=== PATIENT | male | born 1960 | race Caucasian/White ===

== ENCOUNTER → 2017-11-16 | Outpatient (CLI) | payer MEDICARE, OTHER ==
--- NOTE | 2017-11-16 14:32 | MR ---
EXAMINATION TYPE: MR brain wo/w con DATE OF EXAM: 11/16/2017 COMPARISON: NONE HISTORY: 57-year-old male follow-up MS TECHNIQUE: Multiplanar, multisequence images of the brain and brainstem is performed without and with utilizing 7.5 mL intravenous Gadavist gadolinium contrast. Demyelinating disease protocol with rosemarie tional Sagittal Flair sequence performed. FINDINGS: T2 Lesions Present : Yes Approximate Number of Lesions: Approximately 50-75 in each cerebral hemisphere. Locations Identified : Subcortical, deep white matter, and some periventricular. Size of Reference Lesion(s): 1. 1.1 x 0.7 cm in the posterior right frontal subcortical region versus 1.0 x 0.7 cm, previously, a xial image 20, not significantly changed. 2. 0.9 x 0.7 cm right frontal subcortical region more anteriorly unchanged, axial image 19. Enhancing Lesion(s) Present: No T1 Hypointense Lesion(s) Present: Yes Change from Prior: Stable Diffusion weighted images demonstrate no evidence of a recent infarct or other diffusion abnormality. There is no worrisome extra-axial fluid collection. The ventricular system and cisternal spaces ar e normal in size and appearance. The brain volume is age appropriate. Midline structures demonstrate normal morphology. The craniocervical junction appears within normal limits. Post contrast images demonstrate no abnormal enhancement. The dural venous sinuses appear patent. Moderate to severe mucosal thickening involving the maxillary sinuses and ethmoid air cells. Trace mu cosal thickening in the frontal sinuses. Globes appear intact. Continued partial opacification of the right-sided mastoid air cells. IMPRESSION: 1. Stable moderate to severe scattered burden of T2 bright white matter change in keeping with patien t's MS. No new or enhancing lesion seen. 2. 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 3. Continued trapped fluid in the right mastoid air cells. Correlate for any mastoid pain to exclude mastoiditis.
== END | disposition home or self-care (01) ==
LOC: RADMRIMAIN 13:01
PROVIDERS: ATTEND Family Medicine
DX: R90.82 White matter disease, unspecified (principal); Z88.5 Allergy status to narcotic agent
CPT/HCPCS: 70553; A9581

== ENCOUNTER 2019-03-31 14:23 | Emergency (ER) | payer MEDICARE, OTHER ==
[2019-03-31 14:35] VITALS: RESP 16
[2019-03-31] MEDS ORDERED: SODIUM CHLORIDE 0.9% 500 ML 500 ML IV STA (14:59)
[2019-03-31] MEDS ORDERED: LORazepam 2 MG/ML INJ IV STA (14:59)
[2019-03-31 15:30] LABS: ALT 31 U/L (21-72); AST 46 U/L (17-59); Albumin 4.3 g/dL (3.5-5.0); Alkaline Phosphatase 63 U/L (38-126); Anion Gap 6 mmol/L; Blood Urea Nitrogen 9 mg/dL (9-20); Calcium 9.8 mg/dL (8.4-10.2); Carbon Dioxide 25 mmol/L (22-30); Chloride 108 mmol/L (98-107); Glucose 100 mg/dL (74-99); Magnesium 1.9 mg/dL (1.6-2.3); Potassium 4.5 mmol/L (3.5-5.1); Sodium 139 mmol/L (137-145); Total Bilirubin 0.6 mg/dL (0.2-1.3); Total Protein 6.8 g/dL (6.3-8.2)
[2019-03-31 15:34] LABS: HCT 43.1 % (39.0-53.0); HGB 14.5 gm/dL (13.0-17.5); MCH 33.8 pg (25.0-35.0); MCHC 33.8 g/dL (31.0-37.0); MCV 100.2 fL (80.0-100.0); Macrocytosis Slight; Mean Platelet Volume 7.7; Platelet Count 112 k/uL (150-450); RDW 14.4 % (11.5-15.5); WBC 11.8 k/uL (3.8-10.6)
[2019-03-31 15:36] LABS: INR 0.9 (<1.2); Prothrombin Time 9.4 sec (9.0-12.0)
--- NOTE | 2019-03-31 15:36 | XR ---
EXAMINATION TYPE: XR chest 2V DATE OF EXAM: 03/31/2019 COMPARISON: 09/23/2016 HISTORY: Weakness TECHNIQUE: Frontal and lateral views of the chest are obtained. FINDINGS: Heart and mediastinum are normal. Lungs are clear. Diaphragm is normal. There are chest le ads. Bony thorax is intact. IMPRESSION: No active cardiopulmonary disease. Normal heart. There is clearing of the pleural reacti on at the left lung base compared to old exam.
--- NOTE | 2019-03-31 15:38 | CT ---
EXAMINATION TYPE: CT brain wo con DATE OF EXAM: 03/31/2019 COMPARISON: 08/18/2014 HISTORY: Weakness, tremors. Neuro deficits CT DLP: 1162.4 mGycm Automated exposure control for dose reduction was used. FINDINGS: Ventricles have normal size. There is no mass effect nor midline shift. There is no sign of intracran ial hemorrhage. Calvarium is intact. IMPRESSION: NEGATIVE CT SCAN OF THE BRAIN. NO CHANGE.
[2019-03-31 15:41] LABS: Partial Thromboplastin Time 18.4 sec (22.0-30.0)
[2019-03-31 16:21] LABS: Anisocytosis (M) Present; Eosinophils # (M) 0.24 k/uL (0-0.7); Monocytes # (M) 0.12 k/uL (0-1.0); Neutrophils # (M) 2.95 k/uL (1.3-7.7); Neutrophils % (M) 25 %; Nucleated Red Blood Cells 0 /100 WBC (0-0); Poikilocytosis (M) Present; Total Cells Counted 100
[2019-03-31] MEDS ORDERED: diphenhydrAMINE 50 MG/ML 1 ML VIAL IVP STA (16:33)
--- NOTE | 2019-03-31 18:01 | ED ---
General Adult HPI - General Chief complaint: Neuro Symptoms/Deficit Stated complaint: tremors Time Seen by Provider: 03/31/19 14:43 Source: patient, EMS, RN notes reviewed Mode of arrival: EMS Limitations: no limitations - History of Present Illness Initial comments: 59-year-old male with a past medical history of COPD, migraine/cluster headaches, sleep apnea, MS presents to the emergency department for a chief complaint of tremors. Patient states that about 1.5 hours prior to arrival he was shopping when he started to have worse tremors. Patient states he does sometimes have tremors at baseline and is early in the process of being diagnosed with MS. States that these seem to worsen about 1.5 hours ago. States that he felt like he was stuttering and couldn't speak clearly. Patient denies any weakness of upper or lower extremities. Denies headache. Patient denies dizziness or room spinning.Patient has no other complaints at this time i ncluding shortness of breath, chest pain, abdominal pain, nausea or vomiting, headache, or visual changes. - Related Data Home Medications Medication Instructions Recorded Confirmed Omeprazole [PriLOSEC] 20 mg PO AC-BRKFST 08/18/14 09/23/16 rOPINIRole HCL [Requip] 2 mg PO HS 10/27/14 09/23/16 Previous Rx's Medication Instructions Recorded Albuterol Inhaler [Ventolin Hfa 2 puff INHALATION RT-QID PRN #1 02/11/16 Inhaler] puff Mirtazapine [Remeron] 30 mg PO HS #14 tab 02/11/16 Multivitamins, Thera [Multivitamin 1 each PO DAILY@1200 #30 tab 02/11/16 (formulary)] Propranolol [Inderal] 20 mg PO DAILY PRN #14 tab 02/11/16 QUEtiapine [SEROquel] 600 mg PO HS #21 tab 02/11/16 Butalb/Acetaminophen/Caffeine 1 each PO Q4HR PRN #20 tab 05/04/16 [Fioricet] Hydrocodone/Acetaminophen [[place] 1 each PO Q6HR PRN #20 tab 09/23/16 5-325] Allergies Allergy/AdvReac Type Severity Reaction Status Date / Time codeine AdvReac Unknown Nausea Verified 03/31/19 14:29 Review of Systems ROS Statement: Those systems with pertinent positive or pertinent negative responses have been documented in the HPI. ROS Other: All systems not noted in ROS Statement are negative. Past Medical History Past Medical History: COPD Additional Past Medical History / Comment(s): MIGRAINES/CLUSTER HEADACHES, sleep apnea History of Any Multi-Drug Resistant Organisms: None Reported Past Surgical History: Tonsillectomy Additional Past Surgical History / Comment(s): hemmorrhoid, cyst removed from wrist Past Anesthesia/Blood Transfusion Reactions: No Reported Reaction Past Psychological History: Anxiety, Depression Smoking Status: Current every day smoker Past Alcohol Use History: Occasional Past Drug Use History: Marijuana General Exam Limitations: no limitations General appearance: alert, in no apparent distress Head exam: Present: atraumatic, normocephalic, normal inspection Eye exam: Present: normal appearance, PERRL, EOMI. Absent: scleral icterus, conjunctival injection, periorbital swelling ENT exam: Present: normal exam, mucous membranes moist Neck exam: Present: normal inspection, full ROM. Absent: tenderness, meningismus, lymphadenopathy Respiratory exam: Present: normal lung sounds bilaterally. Absent: respiratory distress, wheezes, rales, rhonchi, stridor Cardiovascular Exam: Present: regular rate, normal rhythm, normal heart sounds. Absent: systolic murmur, diastolic murmur, rubs, gallop, clicks GI/Abdominal exam: Present: soft, normal bowel sounds. Absent: distended, tenderness, guarding, rebound, rigid Neurological exam: Present: alert, oriented X3, CN II-XII intact Expanded Patient oriented to: Present: person, place, time Speech: Absent: fluid speech (Patient is stuttering) Cranial nerves: EOM's Intact: Normal, Tongue Deviation: Normal, Nystagmus: Normal, Facial Sensation: Normal Sensory exam: Upper Extremity Light Touch: Normal, Upper Extremity Pin Prick: Normal, Lower Extremity Light Touch: Normal, Lower Extremity Pin Prick: Normal Motor strength exam: RUE: 5 (tremors), LUE: 5 (tremors), RLE: 5 (tremors), LLE: 5 (tremors) Eye Response: (4) open spontaneously Motor Response: (6) obeys commands Verbal Response: (5) oriented Florentin Total: 15 Psychiatric exam: Present: normal affect, normal mood Course Vital Signs 03/31/19 03/31/19 03/31/19 14:29 15:42 18:12 Temperature 98.7 F 98.5 F Pulse Rate 84 90 82 Respiratory 16 16 16 Rate Blood Pressure 142/77 128/68 130/84 O2 Sat by Pulse 93 L 95 96 Oximetry EKG Findings - EKG Comments: EKG Findings:: Sinus rhythm, regular 84, CO interval 156, QRS 96, QTC 420 Medical Decision Making - Medical Decision Making 59-year-old male presents to the emergency department for a chief complaint of tremors and stuttering. Patient states that he sometimes has tremors at baseline and has difficulty walking due to possible MS. However these worsened about an hour and half ago patient began stuttering. Patient denies any weakness. There are any focal neurologic deficits on exam. Patient is noted to stutter. CBC and CMP are unremarkable. Troponin is negative. EKG does not show any evidence of ST elevation or depression. CT brain showed a negative scan without any change. Chest x-ray showed no active cardio pulmonary disease. Patient was evaluated by Dr. Cleary as well. Recommended Ativan. Patient was given Ativan and had significant improvement of symptoms. Patient was noted to be on Seroquel so was also given Benadryl with further improvement of symptoms. Patient actually requesting discharge at this time stating he is feeling much better. Patient is ambulatory. I did discuss the patient following up with primary care for medication review as well as his neurologist tomorrow. Discussed returning here if he has any worsening symptoms. - Lab Data Result diagrams: 03/31/19 15:10 03/31/19 15:10 Lab Results 03/31/19 03/31/19 03/31/19 Range/Units 15:10 15:10 15:10 WBC 11.8 H (3.8-10.6) k/uL RBC 4.30 (4.30-5.90) m/uL Hgb 14.5 (13.0-17.5) gm/dL Hct 43.1 (39.0-53.0) % MCV 100.2 H (80.0-100.0) fL MCH 33.8 (25.0-35.0) pg MCHC 33.8 (31.0-37.0) g/dL RDW 14.4 (11.5-15.5) % Plt Count 112 L (150-450) k/uL Neutrophils % (Manual) 25 % Lymphocytes % (Manual) 72 % Monocytes % (Manual) 1 % Eosinophils % (Manual) 2 % Neutrophils # (Manual) 2.95 (1.3-7.7) k/uL Lymphocytes # (Manual) 8.50 H (1.0-4.8) k/uL Monocytes # (Manual) 0.12 (0-1.0) k/uL Eosinophils # (Manual) 0.24 (0-0.7) k/uL Nucleated RBCs 0 (0-0) /100 WBC Manual Slide Review Performed Poikilocytosis (manual Present Anisocytosis (manual) Present Macrocytosis Slight PT 9.4 (9.0-12.0) sec INR 0.9 (<1.2) APTT 18.4 L (22.0-30.0) sec Sodium 139 (137-145) mmol/L Potassium 4.5 (3.5-5.1) mmol/L Chloride 108 H (98-107) mmol/L Carbon Dioxide 25 (22-30) mmol/L Anion Gap 6 mmol/L BUN 9 (9-20) mg/dL Creatinine 0.90 (0.66-1.25) mg/dL Est GFR (CKD-EPI)AfAm >90 (>60 ml/min/1.73 sqM) Est GFR (CKD-EPI)NonAf >90 (>60 ml/min/1.73 sqM) Glucose 100 H (74-99) mg/dL Calcium 9.8 (8.4-10.2) mg/dL Magnesium 1.9 (1.6-2.3) mg/dL Total Bilirubin 0.6 (0.2-1.3) mg/dL AST 46 (17-59) U/L ALT 31 (21-72) U/L Alkaline Phosphatase 63 (38-126) U/L Troponin I (0.000-0.034) ng/mL Total Protein 6.8 (6.3-8.2) g/dL Albumin 4.3 (3.5-5.0) g/dL 03/31/19 Range/Units 15:10 WBC (3.8-10.6) k/uL RBC (4.30-5.90) m/uL Hgb (13.0-17.5) gm/dL Hct (39.0-53.0) % MCV (80.0-100.0) fL MCH (25.0-35.0) pg MCHC (31.0-37.0) g/dL RDW (11.5-15.5) % Plt Count (150-450) k/uL Neutrophils % (Manual) % Lymphocytes % (Manual) % Monocytes % (Manual) % Eosinophils % (Manual) % Neutrophils # (Manual) (1.3-7.7) k/uL Lymphocytes # (Manual) (1.0-4.8) k/uL Monocytes # (Manual) (0-1.0) k/uL Eosinophils # (Manual) (0-0.7) k/uL Nucleated RBCs (0-0) /100 WBC Manual Slide Review Poikilocytosis (manual Anisocytosis (manual) Macrocytosis PT (9.0-12.0) sec INR (<1.2) APTT (22.0-30.0) sec Sodium (137-145) mmol/L Potassium (3.5-5.1) mmol/L Chloride (98-107) mmol/L Carbon Dioxide (22-30) mmol/L Anion Gap mmol/L BUN (9-20) mg/dL Creatinine (0.66-1.25) mg/dL Est GFR (CKD-EPI)AfAm (>60 ml/min/1.73 sqM) Est GFR (CKD-EPI)NonAf (>60 ml/min/1.73 sqM) Glucose (74-99) mg/dL Calcium (8.4-10.2) mg/dL Magnesium (1.6-2.3) mg/dL Total Bilirubin (0.2-1.3) mg/dL AST (17-59) U/L ALT (21-72) U/L Alkaline Phosphatase (38-126) U/L Troponin I <0.012 (0.000-0.034) ng/mL Total Protein (6.3-8.2) g/dL Albumin (3.5-5.0) g/dL Disposition Clinical Impression: Tremor Disposition: HOME SELF-CARE Condition: Good Instructions (If sedation given, give patient instructions): Tremors (ED) Additional Instructions: Please follow-up with your neurologist tomorrow. Please follow-up with neurology or primary care for a medication review. If symptoms worsen take Benadryl and return to the emergency department. Is patient prescribed a controlled substance at d/c from ED?: No Referrals: Ebenezer Chowdhury DO [Primary Care Provider] - 1-2 days Time of Disposition: 18:01
[2019-03-31 18:13] VITALS: BP 130/84; PULSE 82; TEMP 98.5
== END 2019-03-31 18:13 | disposition home or self-care (01) ==
LOC: EC 14:23
DX: R25.1 Tremor, unspecified (principal); F17.200 Nicotine dependence, unspecified, uncomplicated; Z79.899 Other long term (current) drug therapy; Z88.5 Allergy status to narcotic agent
CPT/HCPCS: 36415; 93005; 80053; 83735; 84484; 85025; 85610; 85730; 71046; 70450; 99285; 96374; 96375; 96361; J2060; J1200

== ENCOUNTER → 2019-08-13 | Outpatient (CLI) | payer MEDICARE, OTHER ==
--- NOTE | 2019-08-13 16:14 | NM ---
EXAMINATION TYPE: NM DatScan Brain SPECT DATE OF EXAM: 08/13/2019 COMPARISON: MR brain dated 11/16/2017 HISTORY: Tremor TECHNIQUE: 10 drops of Lugol's solution was administered 1 hour prior to injection as a thyroid bloc hayley agent. After the administration of 4.44 mCi I-123 Ioflupane DaTscan. Images obtained 3 hours p ost injection. SPECT images of the brain were acquired with axial and coronal reconstructions. FINDINGS: The DaTSCAN demonstrates normal uptake of tracer throughout the striata. Consequently there is no evidence of loss of the pre-synaptic dopaminergic terminals on this investig ation. IMPRESSION: This normal appearance is against a diagnosis of idiopathic Parkinson?s disease (PD) or a Parkinsonia n syndrome (PS) and is seen in healthy individuals and also patients with essential tremor (ET), drug induced parkinsonism, and vascular pseudo-parkinsonism.
== END | disposition home or self-care (01) ==
LOC: RADNMMAIN 10:46
PROVIDERS: ATTEND Psychiatry & Neurology Neurology
DX: G25.0 Essential tremor (principal)
CPT/HCPCS: 78607; A9584

== ENCOUNTER 2020-10-24 20:02 | Emergency (ER) | payer MEDICARE, OTHER ==
[2020-10-24 20:24] VITALS: RESP 18
[2020-10-24 20:26] LABS: Glucose,Whole Blood 111 mg/dL (75-99)
--- NOTE | 2020-10-24 20:28 | ED ---
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 Patient reportedly fell out of his bed and landed on the ground. The patient states that he was trying to get up and lost his balance and fell down. He is difficult to understand at times so history was limited however he was able to answer questions appropriately. The patient states that he did not lose consciousness. He complains of some right-sided head pain and also right elbow pain mostly. He denies any back pain. He states that his tailbone is uncomfortable from the ride over in the ambulance. He otherwise denies any fevers or chills. He admits to a chronic cough that is unchanged. No chest pain. No nausea, vomiting, or diarrhea. There is been no other acute complaints. - Related Data Home Medications Medication Instructions Recorded Confirmed Acetaminophen Tab [Tylenol] 650 mg PEG/G-TUBE Q4H PRN 10/24/20 10/24/20 Aspirin 81 mg PEG/G-TUBE DAILY 10/24/20 10/24/20 Atorvastatin [Lipitor] 40 mg PEG/G-TUBE HS 10/24/20 10/24/20 Docusate Oral Soln [Colace Oral 100 mg PEG/G-TUBE BID 10/24/20 10/24/20 Soln] Heparin Sodium,Porcine [Heparin 5,000 unit SQ Q8H 10/24/20 10/24/20 Sodium] Hydrocortisone Cream 1 applic TOPICAL Q8H PRN 10/24/20 10/24/20 [Hydrocortisone 1% Cream] Metoprolol Tartrate [Lopressor] 25 mg PEG/G-TUBE BID 10/24/20 10/24/20 Multivitamins, Thera Liquid 15 ml PEG/G-TUBE DAILY 10/24/20 10/24/20 [Theragran Liquid (formulary)] Nicotine 14Mg/24Hr Patch [Habitrol 1 patch TRANSDERM DAILY 10/24/20 10/24/20 14Mg/24Hr Patch] Nystatin 100,000 Unit/ml Susp 500,000 unit BUCCAL QID 10/24/20 10/24/20 [Mycostatin Oral Susp] Pantoprazole Sodium 40 mg PEG/G-TUBE DAILY 10/24/20 10/24/20 Scopolamine [TransDerm Scop] 1.5 mg TRANSDERM Q72H 10/24/20 10/24/20 Senna-Grxx Syrup 8.8mg/5ml 10 ml PEG/G-TUBE HS 10/24/20 10/24/20 rOPINIRole HCL [Requip] 0.5 mg PEG/G-TUBE 10/24/20 10/24/20 TID@0700,1300,1900 Allergies Allergy/AdvReac Type Severity Reaction Status Date / Time codeine AdvReac Unknown Nausea Verified 10/24/20 20:46 Review of Systems ROS Statement: Those systems with pertinent positive or pertinent negative responses have been documented in the HPI. ROS Other: All systems not noted in ROS Statement are negative. Past Medical History Past Medical History: COPD Additional Past Medical History / Comment(s): MIGRAINES/CLUSTER HEADACHES, sleep apnea History of Any Multi-Drug Resistant Organisms: None Reported Past Surgical History: Tonsillectomy Additional Past Surgical History / Comment(s): hemmorrhoid, cyst removed from wrist Past Anesthesia/Blood Transfusion Reactions: No Reported Reaction Past Psychological History: Anxiety, Depression Past Alcohol Use History: Occasional Past Drug Use History: Marijuana General Exam - General Exam Comments Initial Comments: Constitutional: Awake alert Appears comfortable Head: Normocephalic atraumatic , no evidence for head trauma on examination Eyes: no conjunctival injection No scleral icterus EOMI, pupils are 3 mm and reactive bilaterally Neck: No JVD Supple, mild tenderness to the paraspinal musculature bilaterally Heart: Regular rate rhythm normal S1-S2 no murmurs Lungs: Clear to auscultation bilaterally No wheezing our some rales bilaterally Abdomen: Soft nondistended nontender, PEG tube in place Extremities: Non edematous DP pulses intact Radial pulses intact Neuro: A&Ox3, significant dysarthria with left-sided flaccid paralysis in the upper and lower extremity. 5 out of 5 strength in the right upper and lower extremity. No facial drooping No focal neurologic deficits Psych: Appropriate mood and affect Limitations: no limitations Course Vital Signs 10/24/20 10/24/20 20:14 22:28 Temperature 98.1 F Pulse Rate 72 79 Respiratory 18 18 Rate Blood Pressure 146/90 119/92 O2 Sat by Pulse 96 97 Oximetry - Reevaluation(s) Reevaluation #1: EKG showing normal sinus rhythm with a rate of 72. No abnormal ST segment changes or T-wave inversions. QTC 427. Other intervals normal. No ectopy. 10/24/20 21:17 Medical Decision Making - Medical Decision Making This 60-year-old male who presents in the department for a fall. He rolled out of bed. The patient did not have any evidence of injury on examination however complained of headache and neck pain and right elbow pain. CT of the head and neck did not reveal any acute abdomen on these. Elbow x-ray showed a calcific bursitis however no acute fractures. Blood work was obtained and unremarkable except for a leukocytosis however the patient states he has chronic leukocytosis. He's had no urinary symptoms. Attempted to get a urine however unsuccessful. Since the patient is had no urinary symptoms we'll hold on urinalysis at this time. It appears the patient's weakness is at baseline and otherwise is no injuries. The patient is currently stable to go back to his [facility]. - Lab Data Result diagrams: 10/24/20 20:29 10/24/20 20:29 Lab Results 10/24/20 10/24/20 10/24/20 Range/Units 20:24 20:25 20:29 WBC 15.8 H (3.8-10.6) k/uL RBC 4.36 (4.30-5.90) m/uL Hgb 15.2 (13.0-17.5) gm/dL Hct 45.6 (39.0-53.0) % MCV 104.5 H (80.0-100.0) fL MCH 34.9 (25.0-35.0) pg MCHC 33.4 (31.0-37.0) g/dL RDW 12.8 (11.5-15.5) % Plt Count 587 H (150-450) k/uL MPV 7.3 Neutrophils % 49 % Lymphocytes % 44 % Monocytes % 2 % Eosinophils % 1 % Basophils % 0 % Neutrophils # 7.8 H (1.3-7.7) k/uL Lymphocytes # 7.0 H (1.0-4.8) k/uL Monocytes # 0.4 (0-1.0) k/uL Eosinophils # 0.2 (0-0.7) k/uL Basophils # 0.1 (0-0.2) k/uL Macrocytosis Slight PT (9.0-12.0) sec INR (<1.2) APTT (22.0-30.0) sec Sodium (137-145) mmol/L Potassium (3.5-5.1) mmol/L Chloride (98-107) mmol/L Carbon Dioxide (22-30) mmol/L Anion Gap mmol/L BUN (9-20) mg/dL Creatinine (0.66-1.25) mg/dL Est GFR (CKD-EPI)AfAm (>60 ml/min/1.73 sqM) Est GFR (CKD-EPI)NonAf (>60 ml/min/1.73 sqM) Glucose (74-99) mg/dL POC Glucose (mg/dL) 111 H (75-99) mg/dL POC Glu Staff Midwife Samra Christine Calcium (8.4-10.2) mg/dL Total Bilirubin (0.2-1.3) mg/dL AST (17-59) U/L ALT (4-49) U/L Alkaline Phosphatase (38-126) U/L Total Protein (6.3-8.2) g/dL Albumin (3.5-5.0) g/dL Blood Type A Positive Blood Type Confirm Blood Type Recheck No Previous Record Bld Type Recheck Status CABO Indicated Antibody Screen NEGATIVE Spec Expiration Date 10/27/2020 - 232410/24/20 10/24/20 10/24/20 Range/Units 20:29 20:29 20:30 WBC (3.8-10.6) k/uL RBC (4.30-5.90) m/uL Hgb (13.0-17.5) gm/dL Hct (39.0-53.0) % MCV (80.0-100.0) fL MCH (25.0-35.0) pg MCHC (31.0-37.0) g/dL RDW (11.5-15.5) % Plt Count (150-450) k/uL MPV Neutrophils % % Lymphocytes % % Monocytes % % Eosinophils % % Basophils % % Neutrophils # (1.3-7.7) k/uL Lymphocytes # (1.0-4.8) k/uL Monocytes # (0-1.0) k/uL Eosinophils # (0-0.7) k/uL Basophils # (0-0.2) k/uL Macrocytosis PT 10.1 (9.0-12.0) sec INR 1.0 (<1.2) APTT 25.7 (22.0-30.0) sec Sodium 137 (137-145) mmol/L Potassium 4.4 (3.5-5.1) mmol/L Chloride 102 (98-107) mmol/L Carbon Dioxide 26 (22-30) mmol/L Anion Gap 9 mmol/L BUN 20 (9-20) mg/dL Creatinine 0.75 (0.66-1.25) mg/dL Est GFR (CKD-EPI)AfAm >90 (>60 ml/min/1.73 sqM) Est GFR (CKD-EPI)NonAf >90 (>60 ml/min/1.73 sqM) Glucose 103 H (74-99) mg/dL POC Glucose (mg/dL) (75-99) mg/dL POC Glu Staff Midwife ID Calcium 10.2 (8.4-10.2) mg/dL Total Bilirubin 0.6 (0.2-1.3) mg/dL AST 29 (17-59) U/L ALT 26 (4-49) U/L Alkaline Phosphatase 86 (38-126) U/L Total Protein 7.7 (6.3-8.2) g/dL Albumin 4.2 (3.5-5.0) g/dL Blood Type Blood Type Confirm A Positive Blood Type Recheck Bld Type Recheck Status Antibody Screen Spec Expiration Date Disposition Clinical Impression: Fall Disposition: HOME SELF-CARE Condition: Stable Is patient prescribed a controlled substance at d/c from ED?: No Referrals: Ebenezer Chowdhury DO [Primary Care Provider] - 1-2 days
[2020-10-24 20:39] LABS: Basophils # (A) 0.1 k/uL (0-0.2); Basophils % (A) 0 %; Eosinophils # (A) 0.2 k/uL (0-0.7); Eosinophils % (A) 1 %; HCT 45.6 % (39.0-53.0); HGB 15.2 gm/dL (13.0-17.5); Lymphocytes % (A) 44 %; MCH 34.9 pg (25.0-35.0); MCHC 33.4 g/dL (31.0-37.0); MCV 104.5 fL (80.0-100.0); Macrocytosis Slight; Mean Platelet Volume 7.3; Monocytes # (A) 0.4 k/uL (0-1.0); Monocytes % (A) 2 %; Neutrophils # (A) 7.8 k/uL (1.3-7.7); Neutrophils % (A) 49 %; Platelet Count 587 k/uL (150-450); RBC 4.36 m/uL (4.30-5.90); RDW 12.8 % (11.5-15.5); WBC 15.8 k/uL (3.8-10.6)
[2020-10-24 20:47] LABS: Partial Thromboplastin Time 25.7 sec (22.0-30.0); Prothrombin Time 10.1 sec (9.0-12.0)
[2020-10-24 20:52] LABS: ALT 26 U/L (4-49); AST 29 U/L (17-59); African American GFR (CKD) >90 (>60 ml/min/1.73 sqM); Albumin 4.2 g/dL (3.5-5.0); Alkaline Phosphatase 86 U/L (38-126); Anion Gap 9 mmol/L; Blood Urea Nitrogen 20 mg/dL (9-20); Calcium 10.2 mg/dL (8.4-10.2); Carbon Dioxide 26 mmol/L (22-30); Chloride 102 mmol/L (98-107); Glucose 103 mg/dL (74-99); Non-African American GFR(CKD) >90 (>60 ml/min/1.73 sqM); Potassium 4.4 mmol/L (3.5-5.1); Sodium 137 mmol/L (137-145); Total Bilirubin 0.6 mg/dL (0.2-1.3); Total Protein 7.7 g/dL (6.3-8.2)
--- NOTE | 2020-10-24 20:59 | XR ---
EXAMINATION TYPE: XR elbow complete RT DATE OF EXAM: 10/24/2020 COMPARISON: NONE HISTORY: Weakness. Pain. Fall. TECHNIQUE: 3 views FINDINGS: There is soft tissue swelling over the olecranon process of the ulna. There is also soft ti ssue calcification. There is no joint effusion. I see no fracture nor dislocation. IMPRESSION: Soft tissue swelling and calcification consistent with calcifying hematoma and calcific o lecranon bursitis.. No acute fracture seen.
--- NOTE | 2020-10-24 21:00 | XR ---
EXAMINATION TYPE: XR chest 1V portable DATE OF EXAM: 10/24/2020 COMPARISON: 03/31/2019 HISTORY: Weakness. Fall. TECHNIQUE: FINDINGS: There is no heart failure nor confluent pneumonic infiltrate. Costophrenic angles are clear . There are no hilar masses. There is no pleural effusion or pneumothorax. IMPRESSION: No active cardiopulmonary disease. Normal heart. No significant change.
--- NOTE | 2020-10-24 21:01 | XR ---
EXAMINATION TYPE: XR pelvis AP view DATE OF EXAM: 10/24/2020 COMPARISON: NONE HISTORY: Pain. TECHNIQUE: Rishabh view FINDINGS: Pelvic ring is intact. Proximal femurs and hip joints are intact. Sacroiliac joints are int act. IMPRESSION: Negative exam. No fracture seen.
--- NOTE | 2020-10-24 21:04 | CT ---
EXAMINATION TYPE: CT brain mattine wo con DATE OF EXAM: 10/24/2020 COMPARISON: CT brain 03/31/2019 HISTORY: fall CT DLP: 1354.5 mGycm Automated exposure control for dose reduction was used. There is mild cerebral atrophy. There is no mass effect nor midline shift. There is no sign of intrac ranial hemorrhage. The calvarium is intact. There is no evidence of cerebral edema. The cervical vertebra have normal alignment. There is no compression fracture. Posterior elements are intact. Disc spaces are fairly normal. Facet joints are intact. Skull base is intact. Prevertebral s oft tissues are intact. IMPRESSION: Mild atrophy. No acute intracranial abnormality. No adverse change. Negative CT scan cervical spine. No fracture.
[2020-10-24] MEDS ORDERED: ACETAMINOPHEN TAB 500 MG TAB PO STA (22:51)
[2020-10-25 00:30] VITALS: BP 134/71; PULSE 80; TEMP 98.7
== END 2020-10-25 00:30 | disposition home or self-care (01) ==
LOC: EC 20:02
DX: Z04.3 Encounter for examination and observation following other accident (principal); M70.31 Other bursitis of elbow, right elbow; D72.829 Elevated white blood cell count, unspecified; J44.9 Chronic obstructive pulmonary disease, unspecified; Z79.82 Long term (current) use of aspirin; Z79.899 Other long term (current) drug therapy; Z88.5 Allergy status to narcotic agent
CPT/HCPCS: 36415; 70450; 71045; 72125; 72170; 80053; 85025; 85610; 85730; 86850; 86900; 86901; 93005; 99285